=== PATIENT | male | born 2000 | race Two or more races ===

== ENCOUNTER 2018-02-07 23:54 | Emergency (ER) | payer MEDICAID ==
[~2018-02-07] VITALS: Ht 177.8 cm; Wt 81.6 kg
[2018-02-08 00:29] LABS: Basophils # (auto) 0.1 uL; Basophils % (auto) 0.7 % (0.0-2.0); Eosinophils # (auto) 0.1 uL; Eosinophils % (auto) 1.1 % (0.0-7.0); Hematocrit 45.2 % (41.0-53.0); Hemoglobin 15.1 g/dL (13.5-17.5); Lymphocytes # (auto) 2.3 uL; Lymphocytes % (auto) 20.2 % (10.0-50.0); Mean Corpuscular Hemoglobin 29.3 pg (28.0-32.0); Mean Corpuscular Hgb Conc. 33.3 g/dL (32.0-36.0); Mean Corpuscular Volume 87.8 fL (80.0-100.0); Monocytes # (auto) 0.6 uL; Monocytes % (auto) 5.4 % (0.0-12.0); Neutrophils # (auto) 8.3 uL; Neutrophils % (auto) 72.6 % (37.0-80.0); Nucleated Red Blood Cells % 0.1 %; Platelet Count (auto) 228 10^3/uL (140-450); Red Blood Cells 5.14 10^6/uL (4.5-5.90); Red Cell Distribution Width 13.3 % (11.8-14.3); White Blood Cell 11.4 10^3/uL (4.4-10.8)
[2018-02-08 00:43] LABS: Alanine Aminotransferase 31 U/L (16-61); Albumin 4.1 g/dL (3.4-5.0); Anion Gap 9 (5-15); Aspartate Aminotransferase 19 U/L (15-37); BUN/Creatinine Ratio 14.4; Blood Urea Nitrogen 17 mg/dL (7-18); Calcium 8.5 mg/dL (8.5-10.1); Carbon Dioxide 27 mmol/L (21-32); Chloride 105 mmol/L (98-107); GFR African American 102 mL/min; GFR Non-African American 85 mL/min; Glucose 158 mg/dL (74-106); Magnesium 2.4 mg/dL (1.6-2.6); Potassium 3.9 mmol/L (3.5-5.1); Sodium 141 mmol/L (136-145)
[2018-02-08 00:48] LABS: Alkaline Phosphatase 85 U/L (45-117); Bilirubin, Total 0.3 mg/dL (0.2-1.0); Total Protein 7.5 g/dL (6.4-8.2)
[2018-02-08 02:34] LABS: Alcohol, Urine < 3.0 mg/dL (0-5); Amphetamine Screen, Urine NEGATIVE (NEGATIVE); Barbiturate Scree,Urine NEGATIVE (NEGATIVE); Benzodiazephine Screen, Urine NEGATIVE (NEGATIVE); Cannabinoid Screen, Urine POSITIVE (NEGATIVE); Cocaine Screen, Urine NEGATIVE (NEGATIVE); Opiate Scree,Urine NEGATIVE (NEGATIVE); Phencyclidine Screen, Urine NEGATIVE (NEGATIVE)
[2018-02-08 02:45] LABS: Urine Bacteria NONE SEEN /hpf (None Seen); Urine Blood Negative /uL (Negative); Urine Mucus FEW (None Seen); Urine Specific Gravity 1.029 (1.001-1.035); Urine WBC 3 /hpf (0 - 3)
[2018-02-08 03:30] VITALS: BP 110/67
== END 2018-02-08 04:31 | disposition home or self-care (01) ==
LOC: ER 02-08
DX: R42 Dizziness and giddiness (principal); R73.9 Hyperglycemia, unspecified; F19.10 Other psychoactive substance abuse, uncomplicated; R53.1 Weakness; R55 Syncope and collapse; J45.909 Unspecified asthma, uncomplicated
CPT/HCPCS: 36415; 70450; 71045; 80053; 80307; 81001; 83735; 84484; 85025; 93005